=== PATIENT | female | born 2000 | race Caucasian/White ===

== ENCOUNTER 2020-01-05 05:52 | Emergency (ER) | payer BC, OTHER ==
[2020-01-05 06:00] VITALS: RESP 18
[2020-01-05] MEDS ORDERED: LIDOCAINE 1% INJ 10MG/ML (20 ML MDV) SQ STA (06:19)
[2020-01-05] MEDS ORDERED: DIPH,PERTUS(ACELL)TETVAC-LF 0.5 ML VIAL IM ONE (06:19)
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
[2020-01-05] MEDS ORDERED: ceFAZolin 1,000 MG VIAL (IM USE) IM STA (06:51)
[2020-01-05] MEDS ORDERED: WATER FOR IRRIG, STERILE 1,000 ML BTL IRRIGATION ONE (06:52)
--- NOTE | 2020-01-05 06:57 | XR ---
EXAMINATION TYPE: XR tibia fibula LT DATE OF EXAM: 01/05/2020 COMPARISON: NONE HISTORY: Laceration TECHNIQUE: 3 views FINDINGS: The tibia and fibula appear intact. I see no fracture nor dislocation. Knee joint and ankle joint appear intact. There is no sign of radiopaque foreign body. IMPRESSION: Negative exam. No fracture. Minimal laceration deformity noted over the anterior mid tibi a on the lateral view.
[2020-01-05 07:48] VITALS: BP 118/73; PULSE 96; TEMP 97.9
== END 2020-01-05 07:53 | disposition home or self-care (01) ==
LOC: EC 05:52
DX: S81.812A Laceration without foreign body, left lower leg, initial encounter (principal); Z23 Encounter for immunization; V43.53XA Car driver injured in collision with pick-up truck in traffic accident, initial encounter; Y92.410 Unspecified street and highway as the place of occurrence of the external cause
CPT/HCPCS: 73590; 90715; 99284; 96372; 90471; 12002; J0690; J2001

== ENCOUNTER 2020-09-13 02:11 | Emergency (ER) | payer BC ==
[2020-09-13 02:19] VITALS: RESP 18
--- NOTE | 2020-09-13 03:08 | XR ---
EXAM: XR Chest, 2 Views CLINICAL HISTORY: Chest pain TECHNIQUE: Frontal and lateral views of the chest. COMPARISON: None available FINDINGS: Lungs: Unremarkable. No consolidation. Pleural space: Unremarkable. No pneumothorax. Heart: Unremarkable. No cardiomegaly. Mediastinum: Unremarkable. Bones/joints: Unremarkable. IMPRESSION: No acute pulmonary process.
[2020-09-13] MEDS ORDERED: KETOROLAC 15 MG/ML 1 ML VIAL IM STA (03:10)
--- NOTE | 2020-09-13 03:10 | ED ---
Chest Pain HPI - General Chief Complaint: Chest Pain Stated Complaint: Chest pain, SOB Time Seen by Provider: 09/13/20 02:22 Source: patient Mode of arrival: ambulatory Limitations: no limitations - History of Present Illness Initial Comments: Carissa is a previously healthy 20-year-old female who presents the ER today for evaluation of 1 day of chest pain. Patient states that yesterday throughout the day she had a sharp stabbing discomfort in her chest which she describes as feeling like she's being poked. Patient reports the discomfort is worse with deep inspiration. Is not exertional. This not relieved with rest. She is hydrated take any medications for this. She has no cardiac history. No history of DVT or PE. She is not on any estrogen supplements, she is a nonsmoker. No Family history of clotting disorder. 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 She states she was having a stabbing discomfort again which prompted her to come to the ER for evaluation. Pain was not associated with any palpitations, shortness breath lightheadedness or diaphoresis. - Related Data Previous Rx's Medication Instructions Recorded Cephalexin [Keflex] 500 mg PO Q6HR 7 Days #28 cap 01/05/20 Allergies Allergy/AdvReac Type Severity Reaction Status Date / Time No Known Allergies Allergy Verified 09/13/20 02:19 Review of Systems ROS Statement: Those systems with pertinent positive or pertinent negative responses have been documented in the HPI. ROS Other: All systems not noted in ROS Statement are negative. EKG Findings - EKG Comments: EKG Findings:: EKG was obtained and complaint of chest pain, EKG was obtained at 20 5 AM, rate is 67, rhythm is narrow complex regular rhythm the P-wave before each QRS this is a sinus rhythm. There is a normal axis, normal intervals, OH 154, QRS 84, QTC 443. There is no acute ST elevations or depressions no evidence of acute ischemia or infarction or arrhythmia. Past Medical History Past Medical History: No Reported History History of Any Multi-Drug Resistant Organisms: None Reported Past Surgical History: No Surgical Hx Reported Past Psychological History: Anxiety, Depression Smoking Status: Never smoker Past Alcohol Use History: Occasional Past Drug Use History: None Reported General Exam - General Exam Comments Initial Comments: Physical Exam GENERAL: Patient is well-developed and well-nourished. Patient is nontoxic and well- hydrated and is in no distress. HENT: Normocephalic, Atraumatic. EYES: PERRL, EOMI PULMONARY: Unlabored respirations. No audible rales rhonchi or wheezing was noted. CARDIOVASCULAR: There is a regular rate and rhythm without any murmurs gallops or rubs. ABDOMEN: Soft and nontender with normal bowel sounds. SKIN: Skin is clear with no lesions or rashes and otherwise unremarkable. : Deferred NEUROLOGIC: Patient is alert and oriented x3. Moving all extremities spontaneously MUSCULOSKELETAL: Normal extremities with adequate strength and full range of motion. No lower extremity swelling or edema. No calf tenderness. PSYCHIATRIC: Normal psychiatric evaluation. Limitations: no limitations Course Vital Signs 09/13/20 09/13/20 02:15 03:20 Temperature 97.9 F 98.6 F Pulse Rate 79 82 Respiratory 18 18 Rate Blood Pressure 117/76 122/85 O2 Sat by Pulse 98 98 Oximetry Chest Pain [facility] The patient was seen and evaluated history is obtained from the patient Patient with atypical chest pain for over 24 hours, no cardiac risk factors no risk factors for DVT or PE Patient has no tachycardia or hypoxia EKG is nonischemic mix and chest x-ray is unremarkable Patient will be treated with Toradol Discussion of atypical chest pain was had with the patient. Patient agreeable to plan for discharge home at this time with close follow-up with her primary care provider. Close return parameters were discussed. All questions pertaining care were answered the best of my ability the patient was discharged home in stable condition. - Wells Criteria Clinical Symptoms of DVT: (0) No No Alternative Diagnosis: (0) No Immobilization of Surgery in Previous 4 Weeks: (0) No Previous DVT/PE: (0) No Hemoptysis: (0) No Malignancy: (0) No - PERC Rule No Prior History pf DVT/PE: (0) No No Recent Trauma or Surgery: (0) No Hemoptysis: (0) No No Exogenous Estrogen: (0) No No Clinical Signs Suggesting DVT: (0) No - JOESPH Score Age > 65: (0) No 3 or more CAD Risk Factors: (0) No Known CAD with more than 50% Stenosis: (0) No Aspirin use within the Past 7 Days: (0) No Elevated Cardiac Markers: (0) No ST Deviation Greater than 0.5mm: (0) No Disposition Clinical Impression: Atypical chest pain Disposition: HOME SELF-CARE Condition: Stable Instructions (If sedation given, give patient instructions): Chest Pain (ED) Is patient prescribed a controlled substance at d/c from ED?: No Referrals: Severiano Mancilla MD [Primary Care Provider] - 1-2 days
[2020-09-13 03:24] VITALS: BP 122/85; PULSE 82; TEMP 98.6
== END 2020-09-13 03:20 | disposition home or self-care (01) ==
LOC: EC 02:11
DX: R07.89 Other chest pain (principal); R06.02 Shortness of breath
CPT/HCPCS: 93005; 71046; 99285; 96372; J1885

== ENCOUNTER 2020-12-05 06:25 | Day surgery (SDC) | payer BC, OTHER ==
[2020-11-30 10:39] VITALS: BMI 36.9
[~2020-12-05 06:25] MED LIST: ACETAMINOPHEN TAB 500 MG TAB PO PRN; DEXAMETHASONE SOD PHOSPHATE 4 MG/ML 1 ML VIAL IV ONE; HEPARIN SODIUM,PORCINE 5,000 UNIT/ML 1 ML VIAL SQ PRN; LACTATED RINGERS 1,000 ML IV SCH; LIDOCAINE 1% (10MG/ML) FOR IV START INTRADERMA PRN; SCOPOLAMINE 1.5MG/72HR PATCH TRANSDERM ONE; metroNIDAZOLE-NS PMX 500 MG in SALINE 1 100ML.BAG IVPB PRN
[2020-12-05] MEDS ORDERED: HYDROmorphone 0.5 MG/0.5 ML SYRINGE IVP PRN (07:00)
[2020-12-05] MEDS: ONDANSETRON 4 MG/2 ML VIAL IVP ONE ×2 (07:27→09:16)
[2020-12-05] MEDS ORDERED: MIDAZOLAM 2 MG/2 ML VIAL ONE (07:54)
[2020-12-05] MEDS ORDERED: PROPOFOL 10 MG/ML 20 ML VIAL IV ONE (07:54)
[2020-12-05] MEDS ORDERED: LIDOCAINE 1% INJ 10MG/ML (20 ML MDV) ONE (07:54)
[2020-12-05] MEDS ORDERED: fentaNYL (PF) 50 MCG/ML 2 ML AMP ONE (07:54)
[2020-12-05] MEDS ORDERED: SUCCINYLCHOLINE CHLORIDE VIAL 200 MG/10 ML VIAL IV ONE (07:54)
--- NOTE | 2020-12-05 07:54 | P.GSHP ---
History of Present Illness H&P Date: 12/05/20 Chief Complaint: Pilonidal cyst 20-year-old female here today for excision pilonidal cyst. Patient has symptoms intermittently for the last 3 years. Last seen in September. He has frequent drainage that is bloody purulent in appearance. Symptoms slightly to the left of midline. Past Medical History Past Medical History: No Reported History Additional Past Medical History / Comment(s): pilonidal cyst History of Any Multi-Drug Resistant Organisms: None Reported Past Surgical History: No Surgical Hx Reported Past Anesthesia/Blood Transfusion Reactions: No Reported Reaction Smoking Status: Never smoker - Past Family History Mother Family Medical History: No Reported History Medications and Allergies Home Medications Medication Instructions Recorded Confirmed Type Sertraline [Zoloft] 100 mg PO DAILY 11/30/20 12/05/20 History Allergies Allergy/AdvReac Type Severity Reaction Status Date / Time No Known Allergies Allergy Verified 12/05/20 07:02 Surgical - Exam Vital Signs Temp Pulse BP Pulse Ox 98 F 89 117/71 98 12/05/20 07:03 12/05/20 07:03 12/05/20 07:03 12/05/20 07:03 Physical exam: General: Well-developed, well-nourished HEENT: Normocephalic, sclerae nonicteric Abdomen: Nontender, nondistended Extremities: No edema, area of induration and tenderness just to left of midline, 3 sinus openings along the gluteal crease Neuro: Alert and oriented Assessment and Plan (1) Pilonidal cyst Narrative/Plan: 20-year-old female with symptomatic pilonidal cyst. We'll proceed with surgical excision. Plan off midline closure. Risks of bleeding, infection, wound formation, recurrence, pain, scarring reviewed. She understands and wishes to proceed. Current Visit: Yes Status: Acute Code(s): L05.91 - PILONIDAL CYST WITHOUT ABSCESS SNOMED Code(s): 12093659
[2020-12-05] MEDS ORDERED: LIDOCAINE 1%-EPI 1:100,000 20 ML VIAL SQ ONE (08:22)
[2020-12-05] MEDS ORDERED: BUPIVACAINE (PF) 0.25% 30 ML VIAL SQ ONE ×2 (08:31)
[2020-12-05 09:09] VITALS: TEMP 97.1
[2020-12-05] MEDS ORDERED: HYDROcodone/APAP 5-325MG 1 EACH TAB PO PRN (09:11)
[2020-12-05] MEDS ORDERED: NALOXONE 0.4 MG/ML 1 ML VIAL IV PRN (09:11)
[2020-12-05] MEDS ORDERED: KETOROLAC 15 MG/ML 1 ML VIAL IVP ONE (09:16)
--- NOTE | 2020-12-05 09:17 | P.OP ---
Date of Procedure: 12/05/20 Procedure(s) Performed: PREOPERATIVE DIAGNOSIS: Pilonidal cyst POSTOPERATIVE DIAGNOSIS: Same PROCEDURE: Pilonidal cystectomy SURGEON: Fredy EBL: Minimal ANESTHESIA: General COMPLICATIONS: None OPERATIVE PROCEDURE: Patient was placed prone on the operating table after general anesthesia was achieved. The gluteal crease was prepped and draped in usual sterile fashion after the patient was placed in the prone jackknife position. The patient had 3 separate skin openings in the upper gluteal crease. She had a scar with induration and questionable fluctuation superior to the skin openings into the left of midline. The skin openings were too small to allow methylene blue instillation. Skin markings were used to delineate the anticipated excision site. Cat cleft lift technique was utilized. An elliptical incision was made to the left side of the buttock encompassing the medial aspect of the left buttock skin coming around just on the right side of the skin openings. Dissection through the subcutaneous tissues took place using electrocautery. The least amount of dissection took place that was required. No tunneling was seen in the periphery. Skin flap was raised to the right approximately 3-4 cm. The wound was then irrigated fully with saline. No bleeding was seen. The subcutaneous tissues were reapproximated using interrupted 2-0 Vicryl sutures. A 10 round drain was placed above the deeper closure layer. This exited from the left side and sutured to the skin using a 3-0 silk stitch. The dermal layer was then reapproximated using interrupted 3-0 Vicryl sutures. The skin was then closed using a running 3-0 Monocryl suture. The incision was off the midline to the left by a distance of approximately 1cm. Marcaine solution plain was utilized as local anesthesia. Skin glue was used along the length of the skin closure. A sterile dressing was applied at that time. DISPOSITION: Stable to recovery room
[2020-12-05 10:52] VITALS: BP 128/81; PULSE 77; RESP 16
== END 2020-12-05 10:45 | disposition home or self-care (01) ==
LOC: OR 06:25
PROVIDERS: ATTEND Surgery
DX: L05.01 Pilonidal cyst with abscess (principal); F32.9 Major depressive disorder, single episode, unspecified; E66.9 Obesity, unspecified; Z79.899 Other long term (current) drug therapy; F41.9 Anxiety disorder, unspecified; Z82.49 Family history of ischemic heart disease and other diseases of the circulatory system; Z83.3 Family history of diabetes mellitus; Z80.9 Family history of malignant neoplasm, unspecified; Z68.39 Body mass index [BMI] 39.0-39.9, adult
CPT/HCPCS: 11771; 81025; 88304; J2250; J0330; J1100; J0690; J2405; J2001; J3010; J1885; J2704; J1170

== ENCOUNTER → 2022-08-28 | Outpatient (CLI) | payer BC ==
--- NOTE | 2022-08-28 18:57 | CT ---
EXAMINATION TYPE: CT abdomen pelvis w con DATE OF EXAM: 08/28/2022 COMPARISON: NONE HISTORY: 22-year-old female R10.823, RLQ PAIN TECHNIQUE: Contiguous axial scanning of the abdomen and pelvis following administration of 100 ml Iso suni 300 IV contrast. Delayed images through the kidneys and coronal/sagittal reconstructions perform ed. CT DLP: 2751.40 mGycm Automated exposure control for dose reduction was used. FINDINGS: LUNG BASES: No significant abnormality is appreciated. LIVER/GB: No significant abnormality is appreciated. PANCREAS: No significant abnormality is seen. SPLEEN: No significant abnormality is seen. ADRENALS: No significant abnormality is seen. KIDNEYS: No significant abnormality is seen. BOWEL: There is a small hiatal hernia noted. No dilated small bowel, free fluid, or free air. Some pr ominent fluid filled small bowel loops are present in the mid to lower abdomen and may be transient. The appendix is borderline thickened at 8 mm. There is also a 9 mm appendicolith near the tip of the appendix. No felix fluid distention is seen. Some early inflammation is difficult to exclude. Refer t o coronal image 49. Mild stool burden. No pericolonic inflammatory change otherwise seen. LYMPH NODES: No mesenteric or retroperitoneal lymphadenopathy. No pelvic lymphadenopathy. PELVIS: Uterus is anteverted. Mild cul-de-sac free fluid likely physiologic. There is a 2.0 cm cyst o f the left ovary, probably a functional cyst. BONES: No significant abnormality is seen. IMPRESSION: 1. A 9 MM APPENDICOLITH NEAR THE TIP OF THE APPENDIX. THE APPENDIX IS ALSO BORDERLINE TO MILDLY THICK ENED AT 8 MM (NORMAL IS GENERALLY 6 MM OR LESS). HOWEVER, THERE IS NO FELIX FLUID DISTENTION SEEN AT THIS TIME. UNABLE TO EXCLUDE SOME EARLY INFLAMMATION. THE PATIENT SHOULD BE FOLLOWED CLINICALLY TO EX CLUDE AN EARLY ACUTE APPENDICITIS. 2. SOME PROMINENT FLUID-FILLED SMALL BOWEL LOOPS IN THE MID TO LOWER ABDOMEN COULD BE TRANSIENT OR CO ULD REFLECT A REGIONAL ENTERITIS OR MILD ILEUS. 3. MILD CUL-DE-SAC FREE FLUID LIKELY PHYSIOLOGIC. 4. SMALL HIATAL HERNIA.
== END | disposition home or self-care (01) ==
LOC: RADCTMAIN 12:45
PROVIDERS: ATTEND Family Medicine
DX: R10.823 Right lower quadrant rebound abdominal tenderness (principal)
CPT/HCPCS: 74177; Q9967

== ENCOUNTER 2022-08-29 14:26 | Observation (INO) | payer BC ==
[2022-08-29 16:15] LABS: Appearance,Urine Clear (Clear); Bacteria,Urine Rare /hpf; Bilirubin,Urine Negative (Negative); Blood,Urine Negative (Negative); Color,Urine Yellow; Glucose,Urine (UA) Negative (Negative); Ketones,Urine Negative (Negative); Leukocyte Esterase,Urine Moderate (Negative); Mucus,Urine Few /hpf; Nitrite,Urine Negative (Negative); PH, Urine 5.5 (5.0-8.0); Protein,Urine Trace (Negative); RBC,Urine 2 /hpf (0-5); Specific Gravity,Urine 1.028 (1.001-1.035); Squamous Epithelial Cell,Urine 3 /hpf (0-4); WBC,Urine 5 /hpf (0-5)
[2022-08-29 16:22] LABS: Basophils % (A) 0 %; Eosinophils # (A) 0.2 k/uL (0-0.7); Eosinophils % (A) 3 %; HCT 39.7 % (34.0-46.0); HGB 13.3 gm/dL (11.4-16.0); Lymphocytes # (A) 2.1 k/uL (1.0-4.8); Lymphocytes % (A) 27 %; MCH 27.4 pg (25.0-35.0); MCHC 33.6 g/dL (31.0-37.0); MCV 81.7 fL (80.0-100.0); Mean Platelet Volume 8.3; Monocytes # (A) 0.3 k/uL (0-1.0); Monocytes % (A) 3 %; Neutrophils # (A) 5.2 k/uL (1.3-7.7); Neutrophils % (A) 66 %; Platelet Count 240 k/uL (150-450); RBC 4.86 m/uL (3.80-5.40)
[2022-08-29 16:31] LABS: ALT 21 U/L (4-34); AST 19 U/L (14-36); African American GFR (CKD) >90 (>60 ml/min/1.73 sqM); Albumin 4.3 g/dL (3.5-5.0); Alkaline Phosphatase 70 U/L (38-126); Anion Gap 13 mmol/L; Blood Urea Nitrogen 13 mg/dL (7-17); Calcium 9.3 mg/dL (8.4-10.2); Carbon Dioxide 22 mmol/L (22-30); Chloride 102 mmol/L (98-107); Glucose 86 mg/dL (74-99); Non-African American GFR(CKD) >90 (>60 ml/min/1.73 sqM); Potassium 4.1 mmol/L (3.5-5.1); Sodium 137 mmol/L (137-145); Total Bilirubin 0.3 mg/dL (0.2-1.3); Total Protein 7.2 g/dL (6.3-8.2)
--- NOTE | 2022-08-29 19:02 | ED ---
General Adult HPI - General Chief complaint: Abdominal Pain Stated complaint: appendix Time Seen by Provider: 08/29/22 14:35 Source: patient, RN notes reviewed, old records reviewed Mode of arrival: ambulatory Limitations: no limitations - History of Present Illness Initial comments: 42-year-old female presents for abnormal outpatient CT and abdominal pain. Patient is otherwise healthy. She developed right lower quadrant pain 3 days prior and had outpatient computed tomography scan performed yesterday which was concerning for appendicitis. She has not had fever but his had chills. No vomiting. No urinary symptoms. She has been moving her bowels without any issue. Denies current . She states that her pain is actually improving over the past 24 hours. - Related Data Home Medications Medication Instructions Recorded Confirmed Sertraline [Zoloft] 100 mg PO DAILY 11/30/20 12/05/20 Previous Rx's Medication Instructions Recorded oxyCODONE HCL [OxyIR] 5 mg PO Q6H PRN 3 Days #6 tab 12/05/20 Allergies Allergy/AdvReac Type Severity Reaction Status Date / Time No Known Allergies Allergy Verified 12/05/20 07:02 Review of Systems ROS Statement: Those systems with pertinent positive or pertinent negative responses have been documented in the HPI. ROS Other: All systems not noted in ROS Statement are negative. Past Medical History Past Medical History: No Reported History Additional Past Medical History / Comment(s): pilonidal cyst History of Any Multi-Drug Resistant Organisms: None Reported Past Surgical History: No Surgical Hx Reported Past Anesthesia/Blood Transfusion Reactions: No Reported Reaction Past Psychological History: Anxiety, Depression Smoking Status: Never smoker - Past Family History Mother Family Medical History: No Reported History General Exam Limitations: no limitations General appearance: alert, in no apparent distress Head exam: Present: atraumatic, normocephalic Eye exam: Present: normal appearance, PERRL ENT exam: Present: normal exam Neck exam: Present: normal inspection. Absent: tenderness, meningismus Respiratory exam: Present: normal lung sounds bilaterally. Absent: respiratory distress, wheezes Cardiovascular Exam: Present: regular rate, normal rhythm GI/Abdominal exam: Present: soft, tenderness (Mild right lower quadrant tenderness). Absent: distended Extremities exam: Present: normal inspection, normal capillary refill. Absent: pedal edema Neurological exam: Present: alert, oriented X3, CN II-XII intact Psychiatric exam: Present: normal affect, normal mood Skin exam: Present: warm, dry, intact. Absent: cyanosis, diaphoretic Course Vital Signs 08/29/22 14:27 Temperature 98 F Pulse Rate 85 Respiratory 16 Rate Blood Pressure 147/84 O2 Sat by Pulse 98 Oximetry Medical Decision Making - Medical Decision Making 22-year-old female with outpatient CT evidence of acute appendicitis. Patient well-appearing with stable vitals. She does have right lower quadrant tenderness on exam. She has a normal CBC, normal CMP. She started on IV fluids and IV antibiotics in the emergency department. Case discussed with Dr. Dupree who will admit. - Lab Data Result diagrams: 08/29/22 15:58 08/29/22 15:58 Lab Results 08/29/22 08/29/22 08/29/22 Range/Units 15:58 15:58 15:58 WBC 8.0 (3.8-10.6) k/uL RBC 4.86 (3.80-5.40) m/uL Hgb 13.3 (11.4-16.0) gm/dL Hct 39.7 (34.0-46.0) % MCV 81.7 (80.0-100.0) fL MCH 27.4 (25.0-35.0) pg MCHC 33.6 (31.0-37.0) g/dL RDW 13.0 (11.5-15.5) % Plt Count 240 (150-450) k/uL MPV 8.3 Neutrophils % 66 % Lymphocytes % 27 % Monocytes % 3 % Eosinophils % 3 % Basophils % 0 % Neutrophils # 5.2 (1.3-7.7) k/uL Lymphocytes # 2.1 (1.0-4.8) k/uL Monocytes # 0.3 (0-1.0) k/uL Eosinophils # 0.2 (0-0.7) k/uL Basophils # 0.0 (0-0.2) k/uL Sodium (137-145) mmol/L Potassium (3.5-5.1) mmol/L Chloride (98-107) mmol/L Carbon Dioxide (22-30) mmol/L Anion Gap mmol/L BUN (7-17) mg/dL Creatinine (0.52-1.04) mg/dL Est GFR (CKD-EPI)AfAm (>60 ml/min/1.73 sqM) Est GFR (CKD-EPI)NonAf (>60 ml/min/1.73 sqM) Glucose (74-99) mg/dL Calcium (8.4-10.2) mg/dL Total Bilirubin (0.2-1.3) mg/dL AST (14-36) U/L ALT (4-34) U/L Alkaline Phosphatase (38-126) U/L Total Protein (6.3-8.2) g/dL Albumin (3.5-5.0) g/dL Urine Color Yellow Urine Appearance Clear (Clear) Urine pH 5.5 (5.0-8.0) Ur Specific [place] 1.028 (1.001-1.035) Urine Protein Trace H (Negative) Urine Glucose (UA) Negative (Negative) Urine Ketones Negative (Negative) Urine Blood Negative (Negative) Urine Nitrite Negative (Negative) Urine Bilirubin Negative (Negative) Urine Urobilinogen 2.0 (<2.0) mg/dL Ur Leukocyte Esterase Moderate H (Negative) Urine RBC 2 (0-5) /hpf Urine WBC 5 (0-5) /hpf Ur Squamous Epith Cells 3 (0-4) /hpf Urine Bacteria Rare H (None) /hpf Urine Mucus Few H (None) /hpf Urine HCG, Qual Not Detected (Not Detectd) 08/29/22 Range/Units 15:58 WBC (3.8-10.6) k/uL RBC (3.80-5.40) m/uL Hgb (11.4-16.0) gm/dL Hct (34.0-46.0) % MCV (80.0-100.0) fL MCH (25.0-35.0) pg MCHC (31.0-37.0) g/dL RDW (11.5-15.5) % Plt Count (150-450) k/uL MPV Neutrophils % % Lymphocytes % % Monocytes % % Eosinophils % % Basophils % % Neutrophils # (1.3-7.7) k/uL Lymphocytes # (1.0-4.8) k/uL Monocytes # (0-1.0) k/uL Eosinophils # (0-0.7) k/uL Basophils # (0-0.2) k/uL Sodium 137 (137-145) mmol/L Potassium 4.1 (3.5-5.1) mmol/L Chloride 102 (98-107) mmol/L Carbon Dioxide 22 (22-30) mmol/L Anion Gap 13 mmol/L BUN 13 (7-17) mg/dL Creatinine 0.69 (0.52-1.04) mg/dL Est GFR (CKD-EPI)AfAm >90 (>60 ml/min/1.73 sqM) Est GFR (CKD-EPI)NonAf >90 (>60 ml/min/1.73 sqM) Glucose 86 (74-99) mg/dL Calcium 9.3 (8.4-10.2) mg/dL Total Bilirubin 0.3 (0.2-1.3) mg/dL AST 19 (14-36) U/L ALT 21 (4-34) U/L Alkaline Phosphatase 70 (38-126) U/L Total Protein 7.2 (6.3-8.2) g/dL Albumin 4.3 (3.5-5.0) g/dL Urine Color Urine Appearance (Clear) Urine pH (5.0-8.0) Ur Specific [place] (1.001-1.035) Urine Protein (Negative) Urine Glucose (UA) (Negative) Urine Ketones (Negative) Urine Blood (Negative) Urine Nitrite (Negative) Urine Bilirubin (Negative) Urine Urobilinogen (<2.0) mg/dL Ur Leukocyte Esterase (Negative) Urine RBC (0-5) /hpf Urine WBC (0-5) /hpf Ur Squamous Epith Cells (0-4) /hpf Urine Bacteria (None) /hpf Urine Mucus (None) /hpf Urine HCG, Qual (Not Detectd) Disposition Clinical Impression: Acute appendicitis Disposition: ADMITTED IP TO THIS [facility] Condition: Stable Is patient prescribed a controlled substance at d/c from ED?: No Referrals: Severiano Mancilla MD [Primary Care Provider] - 1-2 days Time of Disposition: 19:09
[2022-08-29] MEDS ORDERED: NALOXONE 0.4 MG/ML 1 ML VIAL IV PRN (19:06)
[2022-08-29] MEDS ORDERED: ACETAMINOPHEN TAB 325 MG TAB PO PRN (19:06)
[2022-08-29] MEDS: PIPERACILLIN-TAZOBACTAM 3.375 GM in SODIUM CHLORIDE 0.9% 100 ML IVPB SCH (20:11)
[2022-08-29] MEDS: SODIUM CHLORIDE 0.9% 1,000 ML IV SCH (20:11)
[2022-08-30] MEDS: PIPERACILLIN-TAZOBACTAM 3.375 GM in SODIUM CHLORIDE 0.9% 100 ML IVPB SCH ×3 (04:22→20:59)
[2022-08-30] MEDS: SODIUM CHLORIDE 0.9% 1,000 ML IV SCH ×2 (04:22→19:43)
[2022-08-30] MEDS ORDERED: ceFAZolin 3 GM in SODIUM CHLORIDE 0.9% 100 ML IVPB PRN (05:00)
--- NOTE | 2022-08-30 08:08 | P.GSHP ---
History of Present Illness H&P Date: 08/30/22 Patient comes in with 2 day history of right lower quadrant abdominal pain. Computed tomography scan revealed consistent with appendicitis. Will proceed with robotic appendectomy. May have ice chips in the interim. Past Medical History Past Medical History: No Reported History Additional Past Medical History / Comment(s): pilonidal cyst History of Any Multi-Drug Resistant Organisms: None Reported Past Surgical History: No Surgical Hx Reported Past Anesthesia/Blood Transfusion Reactions: No Reported Reaction Past Psychological History: Anxiety, Depression Smoking Status: Never smoker Past Alcohol Use History: Occasional Past Drug Use History: None Reported - Past Family History Mother Family Medical History: No Reported History Medications and Allergies Home Medications Medication Instructions Recorded Confirmed Type Biotin 5 mg PO DAILY 08/29/22 08/29/22 History Cholecalciferol [Vitamin D3 (25 25 mcg PO DAILY 08/29/22 08/29/22 History Mcg = 1000 Iu)] PARoxetine [Paxil] 20 mg PO DAILY 08/29/22 08/29/22 History Potassium Gluconate [Potassium 99 mg PO DAILY 08/29/22 08/29/22 History Gluconate ER] Allergies Allergy/AdvReac Type Severity Reaction Status Date / Time No Known Allergies Allergy Verified 08/29/22 19:47 Surgical - Exam Vital Signs Temp Pulse Resp BP Pulse Ox 98 F 85 16 147/84 98 08/29/22 14:27 08/29/22 14:27 08/29/22 14:27 08/29/22 14:27 08/29/22 14:27 Results - Labs 08/29/22 15:58 08/29/22 15:58 Abnormal Lab Results - Last 24 Hours (Table) 08/29/22 Range/Units 15:58 Urine Protein Trace H (Negative) Ur Leukocyte Esterase Moderate H (Negative) Urine Bacteria Rare H (None) /hpf Urine Mucus Few H (None) /hpf Diabetes panel 08/29/22 Range/Units 15:58 Sodium 137 (137-145) mmol/L Potassium 4.1 (3.5-5.1) mmol/L Chloride 102 (98-107) mmol/L Carbon Dioxide 22 (22-30) mmol/L BUN 13 (7-17) mg/dL Creatinine 0.69 (0.52-1.04) mg/dL Glucose 86 (74-99) mg/dL Calcium 9.3 (8.4-10.2) mg/dL AST 19 (14-36) U/L ALT 21 (4-34) U/L Alkaline Phosphatase 70 (38-126) U/L Total Protein 7.2 (6.3-8.2) g/dL Albumin 4.3 (3.5-5.0) g/dL Calcium panel 08/29/22 Range/Units 15:58 Calcium 9.3 (8.4-10.2) mg/dL Albumin 4.3 (3.5-5.0) g/dL Pituitary panel 08/29/22 Range/Units 15:58 Sodium 137 (137-145) mmol/L Potassium 4.1 (3.5-5.1) mmol/L Chloride 102 (98-107) mmol/L Carbon Dioxide 22 (22-30) mmol/L BUN 13 (7-17) mg/dL Creatinine 0.69 (0.52-1.04) mg/dL Glucose 86 (74-99) mg/dL Calcium 9.3 (8.4-10.2) mg/dL Adrenal panel 08/29/22 Range/Units 15:58 Sodium 137 (137-145) mmol/L Potassium 4.1 (3.5-5.1) mmol/L Chloride 102 (98-107) mmol/L Carbon Dioxide 22 (22-30) mmol/L BUN 13 (7-17) mg/dL Creatinine 0.69 (0.52-1.04) mg/dL Glucose 86 (74-99) mg/dL Calcium 9.3 (8.4-10.2) mg/dL Total Bilirubin 0.3 (0.2-1.3) mg/dL AST 19 (14-36) U/L ALT 21 (4-34) U/L Alkaline Phosphatase 70 (38-126) U/L Total Protein 7.2 (6.3-8.2) g/dL Albumin 4.3 (3.5-5.0) g/dL
[2022-08-30] MEDS ORDERED: HEPARIN SODIUM,PORCINE/PF 5,000 UNIT/0.5 ML SYRINGE SQ PRN (08:20)
[2022-08-30] MEDS ORDERED: ONDANSETRON 4 MG/2 ML VIAL IVP PRN (08:20)
[2022-08-30] MEDS ORDERED: METOCLOPRAMIDE 5 MG/ML 2 ML VIAL IVP PRN (08:20)
[2022-08-30] MEDS ORDERED: FAMOTIDINE 20 MG TAB PO STA (08:21)
[2022-08-30] MEDS ORDERED: SCOPOLAMINE 1 MG/72 HR PATCH TRANSDERM STA (08:21)
[2022-08-30] MEDS ORDERED: ACETAMINOPHEN IV (For NPO) 1,000 MG in EMPTY BAG 1 BAG IVPB ONE (08:30)
[2022-08-30] MEDS ORDERED: SODIUM CHLORIDE 0.9% 1,000 ML IV ONE ×2 (14:30→20:25)
[2022-08-30] MEDS ORDERED: FLUID CONTINUATION IV ONE (14:30)
[2022-08-30] MEDS ORDERED: ONDANSETRON 4 MG/2 ML VIAL IVP ONE (14:33)
[2022-08-30] MEDS ORDERED: DEXAMETHASONE SOD PHOSPHATE 4 MG/ML 1 ML VIAL IVP ONE (14:34)
[2022-08-30] MEDS ORDERED: ACETAMINOPHEN IV (For NPO) 1,000 MG/100 ML VIAL IVPB ONE (14:37)
[2022-08-30] MEDS ORDERED: NEOSTIGMINE 1 MG/ML 10 ML VIAL ONE (15:53)
[2022-08-30] MEDS ORDERED: MIDAZOLAM 2 MG/2 ML VIAL ONE (15:53)
[2022-08-30] MEDS ORDERED: SUCCINYLCHOLINE CHLORIDE 200 MG/10 ML VIAL IV ONE (15:53)
[2022-08-30] MEDS ORDERED: ROCURONIUM 10 MG/ML (5 ML VIAL) IV ONE (15:53)
[2022-08-30] MEDS ORDERED: GLYCOPYRROLATE 0.2 MG/ML 2 ML VIAL ONE (15:53)
[2022-08-30] MEDS ORDERED: PROPOFOL 10 MG/ML 20 ML VIAL IV ONE (15:53)
[2022-08-30] MEDS ORDERED: fentaNYL (PF) 50 MCG/ML 2 ML AMP ONE (15:53)
[2022-08-30] MEDS ORDERED: SUGAMMADEX SODIUM 200 MG/2 ML SDV IV ONE (15:53)
[2022-08-30] MEDS ORDERED: LIDOCAINE 1%-EPI 1:100,000 20 ML VIAL SQ ONE (16:18)
--- NOTE | 2022-08-30 16:59 | P.OP ---
Date of Procedure: 08/30/22 Description of Procedure: SURGEON: VICKI FRIAS MD Preoperative Diagnosis: 1. Acute appendicitis 2. Depressive disorder 3. Generalized anxiety disorder 4. Morbid obesity due to excess calories, BMI 40.2 Postoperative Diagnosis: 1. Acute appendicitis 2. Depressive disorder 3. Generalized anxiety disorder 4. Morbid obesity due to excess calories, BMI 40.2 5. Left inguinal hernia Procedure(s) Performed: 1. Robotic-assisted daVinci Xi laparoscopic appendectomy Anesthesia: GETA, local Estimated Blood Loss (ml): 5 Pathology: other (appendix) Condition: stable Disposition: floor Operative Findings: 1. Acute appendicitis without rupture 2. Terminal ileum unremarkable 3. Cecum unremarkable 4. Left inguinal hernia INDICATIONS: The patient is a 22-year-old female who presents with acute appendicitis. Benefits and risks, including infection, open surgery, and bleeding for additional surgery was discussed at length. Informed consent was obtained. All questions of the patient and family were answered. DESCRIPTION: The patient was transferred to the operating room and placed in supine position. The patient had previously voided. The abdomen was then prepped and draped in standard sterile fashion as Ioban was placed along the abdomen to minimize any contamination of skin floor. After a timeout protocol was performed, attention was then brought to the left upper quadrant whereby a 0 degree 5 mm laparoscopic trocar entry was performed. The abdominal cavity was entered and insufflated to 12 mmHg pressure, which was tolerated well. Diagnostic laparoscopy demonstrated no injury to bowel, viscera or mesentery. Next a robotic 8-mm trocar was placed along the left lower quadrant, 10-cm lateral to the midline. A 12 mm port was placed along the left upper quadrant and another 8-mm port left lateral abdominal wall. Ports were placed 8 cm apart from each other including 15-20 cm away from the target anatomy of the right pelvis. The patient was then placed in Trendelenburg position, at least 7 down and right side up at least 7. The robotic da Yeimi XI system was primed and docked from the left side of the patient. Using atraumatic graspers and vessel sealer, the robotic system was docked and primed as described. Instruments were interchanged by the executive assistant to president including graspers, robotic stapler and vessel sealer. Next, attention was brought to identify the cecum. A systematic view within the abdominal cavity was started with the small bowel which was unremarkable. The base of the cecum was unremarkable. A small 1 cm indirect inguinal hernia was identified. The body of the appendix was dilated at the tip. No perforation was identified. The appendix was dissected free from its surrounding tissues. Blue 30 mm robotic staple load was fired along the base of the appendix. The staple line was hemostatic. Hemostasis was checked prior to undocking the robot. The robot was undocked. I re-scrubbed into the case. The specimen was removed from the abdominal cavity with an Endo Catch bag through the 12 mm trocar at the left upper quadrant. All instruments and pneumoperitoneum were evacuated from the abdominal cavity. Local anesthetic was infiltrated to all wounds for postop analgesia. All incisions were also cleansed with diluted hydrogen peroxide. The incisions were closed with 4-0 Monocryl. Exofin glue was applied to the rest of the skin incisions. The patient had tolerated the procedure well. The patient was extubated successfully. The patient was transferred to the postanesthesia care unit in stable condition. Plan - Discharge Summary Discharge Rx Participant: Yes New Discharge Prescriptions: No Action PARoxetine [Paxil] 20 mg PO DAILY Cholecalciferol [Vitamin D3 (25 Mcg = 1000 Iu)] 25 mcg PO DAILY Potassium Gluconate [Potassium Gluconate ER] 99 mg PO DAILY Biotin 5 mg PO DAILY Discharge Medication List Biotin 5 mg PO DAILY 08/29/22 [History] Cholecalciferol [Vitamin D3 (25 Mcg = 1000 Iu)] 25 mcg PO DAILY 08/29/22 [History] PARoxetine [Paxil] 20 mg PO DAILY 08/29/22 [History] Potassium Gluconate [Potassium Gluconate ER] 99 mg PO DAILY 08/29/22 [History] Follow up Appointment(s)/Referral(s): Severiano Mancilla MD [Primary Care Provider] - 1-2 days
[2022-08-30] MEDS: HYDROmorphone 0.5 MG/0.5 ML SYRINGE IVP PRN ×2 (17:07→17:12)
[2022-08-30] MEDS: KETOROLAC 15 MG/ML 1 ML VIAL IVP SCH ×3 (17:07→22:27)
[2022-08-30] MEDS ORDERED: MEPERIDINE 50 MG/ML SYRINGE IVP ONE (17:28)
--- NOTE | 2022-08-30 20:19 | P.PN ---
Progress Note - Text Progress Note Date: 08/30/22 Discussed with nurse regarding patient postoperative care over telephone. Per nursing, patient has elevated heart rate over 120. We'll monitor tonight. Anticipated discharge tomorrow.
[2022-08-31] MEDS: SODIUM CHLORIDE 0.9% 1,000 ML IV SCH ×2 (05:14→11:58)
[2022-08-31] MEDS: KETOROLAC 15 MG/ML 1 ML VIAL IVP SCH (05:28)
[2022-08-31] MEDS: PIPERACILLIN-TAZOBACTAM 3.375 GM in SODIUM CHLORIDE 0.9% 100 ML IVPB SCH (05:28)
[2022-08-31 07:57] VITALS: BP 99/59; PULSE 90; RESP 18; TEMP 98.4
[2022-08-31] MEDS ORDERED: ENOXAPARIN 30 MG/0.3 ML SYRINGE SQ SCH (09:00)
[2022-08-31 09:13] LABS: Basophils # (A) 0.01 X 10*3/uL (0.00-0.10); Basophils % (A) 0.1 %; Eosinophils # (A) 0 X 10*3/uL (0.04-0.35); Eosinophils % (A) 0 %; HCT 37.6 % (37.2-46.3); HGB 12.2 g/dL (12.0-15.0); Immature Grans, Automated 0.2 %; Lymphocytes # (A) 1.44 X 10*3/uL (0.90-5.00); MCH 26.8 pg (27.0-32.0); MCHC 32.4 g/dL (32.0-37.0); MCV 82.5 fL (80.0-97.0); Mean Platelet Volume 10.8 fL (9.5-12.2); Monocytes % (A) 2.9 %; NRBC Per 100 WBC 0 /100 WBCS (0.0-0.0); Neutrophils # (A) 8.48 X 10*3/uL (1.80-7.70); Neutrophils % (A) 82.8 %; Platelet Count 264 X 10*3/uL (140-440); RBC 4.56 X 10*6/uL (4.10-5.20); RDW 13.2 % (11.5-14.5); WBC 10.25 X 10*3/uL (4.50-10.00)
--- NOTE | 2022-08-31 12:07 | P.DS ---
Providers Date of admission: 08/29/22 19:06 Expected date of discharge: 08/31/22 Attending physician: Andie Dupree Consults: 08/30/22 08:20 Consult Physician Routine Consulting Provider: [facility] Consult Reason/Comments: [facility] Do you want consulting provider notified?: Yes Primary care physician: Severiano Mancilla Hospital Course: Discharge diagnosis 1. Acute appendicitis 2. Depressive disorder 3. Generalized anxiety disorder 4. Morbid obesity due to excess calories, BMI 40.2 5. Left inguinal hernia 6. Sinus tachycardia due to dehydration resolved with IV fluids Hospital course This is a 22-year-old female presented with right lower quadrant abdominal pain. Computed tomography scan was consistent with appendicitis. She is status post robotic-assisted laparoscopic appendectomy. Patient tolerated surgery well. Her pain is controlled. She has been up and ambulating. She's tolerating diet. She's having flatus. She is afebrile. Patient is stable for discharge. Physician Boring Machine Operator Production note has been reviewed by physician. Signing provider agrees with the documented findings, assessment, and plan of care. Patient Condition at Discharge: Stable Plan - Discharge Summary Discharge Rx Participant: Yes New Discharge Prescriptions: New Acetaminophen Tab [Tylenol] 1,000 mg PO Q6HR PRN #30 tablet PRN Reason: Pain Ibuprofen [Motrin] 600 mg PO Q8HR PRN #30 tab PRN Reason: Pain Continue PARoxetine [Paxil] 20 mg PO DAILY Cholecalciferol [Vitamin D3 (25 Mcg = 1000 Iu)] 25 mcg PO DAILY Potassium Gluconate [Potassium Gluconate ER] 99 mg PO DAILY Biotin 5 mg PO DAILY Discharge Medication List Biotin 5 mg PO DAILY 08/29/22 [History] Cholecalciferol [Vitamin D3 (25 Mcg = 1000 Iu)] 25 mcg PO DAILY 08/29/22 [History] PARoxetine [Paxil] 20 mg PO DAILY 08/29/22 [History] Potassium Gluconate [Potassium Gluconate ER] 99 mg PO DAILY 08/29/22 [History] Acetaminophen Tab [Tylenol] 1,000 mg PO Q6HR PRN #30 tablet 08/31/22 [Rx] Ibuprofen [Motrin] 600 mg PO Q8HR PRN #30 tab 08/31/22 [Rx] Follow up Appointment(s)/Referral(s): Andie Dupree MD [STAFF PHYSICIAN] - 09/04/22 4:15 pm Severiano Mancilla MD [Primary Care Provider] - 1-2 days (CALL FOR APPOINTMENT.) Patient Instructions/Handouts: Acetaminophen (By mouth), Ibuprofen (By mouth), Laparoscopic Appendectomy (DC) Activity/Diet/Wound Care/Special Instructions: No lifting over 4 pounds in 4 weeks You May shower. No bath tub soaks for two weeks Use Tylenol and ibuprofen scheduled for the next 24-48 hours for best pain relief. Use ice along incisions for the today to prevent swelling. Discharge Disposition: HOME SELF-CARE
== END 2022-08-31 12:31 | disposition home or self-care (01) ==
LOC: EC 14:26 → 6NMEDSUR 19:06
PROVIDERS: ADMIT Surgery Plastic and Reconstructive Surgery; ATTEND Surgery Plastic and Reconstructive Surgery
DX: K35.80 Unspecified acute appendicitis (principal); K40.90 Unilateral inguinal hernia, without obstruction or gangrene, not specified as recurrent; E86.0 Dehydration; R00.0 Tachycardia, unspecified; F32.A Depression, unspecified; F41.1 Generalized anxiety disorder; E66.01 Morbid (severe) obesity due to excess calories; Z68.41 Body mass index [BMI] 40.0-44.9, adult; Z79.899 Other long term (current) drug therapy
CPT/HCPCS: 96361 ×2; 96360; 99285; 36415; 93005; 80053; 85025 ×2; 81001; 81025; 87040; 44970; G0378 ×3; J2543 ×3; J2250; J0330; J1100; J2710; J2175; J0690; J2405; J3010; J1650; J0131; J1885 ×2; J2704; J1170; J1644; 88304

== ENCOUNTER → 2022-09-26 | Outpatient (CLI) | payer BC ==
--- NOTE | 2022-09-26 16:30 | P.SLEEP ---
History of Present Illness DATE: 09/26/2022 CONSULTATION/NEW PATIENT EVALUATION HISTORY OF PRESENT ILLNESS/SLEEP-WAKE EVALUATION: 22year old lady gentleman had been evaluated in the sleep center for possible obstructive sleep apnea hypopnea syndrome. SLEEP SCHEDULE: Usually sleep schedule on weekdays from 9 PM to 4:30 AM, during days off from 11 PM to 10 AM. FALLING ASLEEP: No problems with falling asleep, although patient has TV set and bedroom. DURING SLEEP: Patient snores and wakes up from sleep up to 6 times with one episode of nocturia. Positive history of restless leg symptoms, jerking movements, sweating. No history of hypnogogical hallucinations, sleep paralysis, or cataplexy. DURING THE DAY/WAKE STATE: In the morning patient wake up tired, falling asleep during the day, has problems mainly, concentration, irritability. [place] sleepiness scale is increased to 13. Patient take 1 nap around 11:30 AM. PAST MEDICAL HISTORY: Depression, anxiety, iron deficiency anemia. PAST SURGICAL HISTORY: Appendectomy, pilonidal cyst removed. MEDICATIONS: Paroxetine 20 mg once a day, ferrous sulfate 325 mg once a day. SOCIAL HISTORY: Negative for smoking, alcohol consumption occasional. FAMILY HISTORY: Hypertension, heart problems, cancer, diabetes, thyroid problems, snoring. REVIEW OF SYSTEMS: Snoring, multiple awakenings from sleep, sleepiness during the day, restless leg symptoms. No fevers. No double vision. No recent chest pain. No shortness of breath. No abdominal pain. No bleeding episodes. No blood in urine. No seizure episodes. PHYSICAL EXAMINATION: GENERAL: A pleasant patient without any distress. VITAL SIGNS: BP 114/65, HR 82, RR 16, weight 281 pounds, height 5 foot 9 inches, body mass index 41.4. HEENT: PERRLA, EOMI. Evaluation of oropharynx showed tongue protrudes midline, low position of soft palate Mallampati 3. NECK: Supple. No JVD. Thyroid is not palpable. 15-1/2 inches in circumference. LUNGS: Clear to percussion and to auscultation. Good air exchange. No wheezing or rhonchi. HEART: S1, S2 regular. No murmurs, gallops or rubs. ABDOMEN: Soft and nontender. Bowel sounds are present. No organomegaly appreciated. Obese EXTREMITIES: No clubbing or cyanosis. SUPERVISING ARCHITECT: Awake, alert, and oriented x3. Cranial nerves 2 to 7 intact. There is no fasciculation or atrophy noted. No focal deficits observed. ASSESSMENT: 1. Snoring, multiple awakenings from sleep up to 6 times, low position of soft palate Mallampati 3, excessive daytime sleepiness. Obstructive sleep apnea hypopnea syndrome. 2. Restless leg symptoms. 3 possibly periodic limb movements. 4. History of depression. 5 history of anxiety. 6. Excessive daytime sleepiness, [place] Sleepiness Scale increased to 13. Differential diagnosis would include hypersomnia. 7. Obesity body mass index 41.4. 8. History of iron deficiency anemia. Low level of iron may increase risk for restless legs and periodic limb movements. 9. Status post appendectomy. 10. Status post pilonidal cyst removed. PLAN: 1. Home sleep apnea test for evaluation of patient's breathing during sleep. 2. CPAP/BiPAP titration if sleep study confirms obstructive sleep apnea- hypopnea syndrome. 3. Polysomnogram with multiple sleep latency test if home sleep study will be negative for obstructive sleep apnea hypopnea syndrome for objective evaluation possible periodic limb movements and excessive daytime sleepiness. 4. No driving if patient feels any sleepiness. Patient is aware of civil and criminal liability for unsafe driving. 5. Sleep hygiene with regular sleep time for at least 7.5-8 hours. 6. Watching weight. 7. Preferable position during sleep on the side. Thank you very much for referring this patient for consultation. Sincerely, Bossman Burrell MD, PhD, FAASM. Diplomat of [place] [employer], Sleep Medicine Board by [place] [employer] [place] [employer] Outsole Handler of [facility] [place] Past Medical History Past Medical History: No Reported History Additional Past Medical History / Comment(s): pilonidal cyst History of Any Multi-Drug Resistant Organisms: None Reported Past Surgical History: No Surgical Hx Reported Past Anesthesia/Blood Transfusion Reactions: No Reported Reaction Past Psychological History: Anxiety, Depression Smoking Status: Never smoker Past Alcohol Use History: Occasional Past Drug Use History: None Reported - Past Family History Mother Family Medical History: No Reported History Medications and Allergies Home Medications Medication Instructions Recorded Confirmed Type Biotin 5 mg PO DAILY 08/29/22 08/29/22 History Cholecalciferol [Vitamin D3 (25 25 mcg PO DAILY 08/29/22 08/29/22 History Mcg = 1000 Iu)] PARoxetine [Paxil] 20 mg PO DAILY 08/29/22 08/29/22 History Potassium Gluconate [Potassium 99 mg PO DAILY 08/29/22 08/29/22 History Gluconate ER] Acetaminophen Tab [Tylenol] 1,000 mg PO Q6HR PRN #30 tablet 08/31/22 Rx Ibuprofen [Motrin] 600 mg PO Q8HR PRN #30 tab 08/31/22 Rx Allergies Allergy/AdvReac Type Severity Reaction Status Date / Time No Known Allergies Allergy Verified 08/29/22 19:47 Sleep Note - Sleep Note Sleep Note: Temperature: Pulse Rate: Respiratory Rate: Blood Pressure: SpO2: Height: Weight: BMI: Neck Circumference:
== END ==
LOC: SLEEP 15:41
PROVIDERS: ATTEND Internal Medicine
DX: G47.33 Obstructive sleep apnea (adult) (pediatric) (principal); G25.81 Restless legs syndrome; G47.61 Periodic limb movement disorder; F41.8 Other specified anxiety disorders; E66.9 Obesity, unspecified; Z68.41 Body mass index [BMI] 40.0-44.9, adult; Z48.815 Encounter for surgical aftercare following surgery on the digestive system; Z48.817 Encounter for surgical aftercare following surgery on the skin and subcutaneous tissue; Z86.2 Personal history of diseases of the blood and blood-forming organs and certain disorders involving the immune mechanism
CPT/HCPCS: 99211

== ENCOUNTER → 2023-02-13 | Outpatient (CLI) | payer BC ==
--- NOTE | 2023-02-13 14:01 | P.PN ---
Subjective DATE: 02/13/2023 FOLLOW UP VISIT. Patient returned to sleep center for follow-up visit to discuss results of recent CPAP titration test with falling multiple sleep latency test. I discuss results of sleep studies with patient in details. During the night on CPAP patient the slept quite well with normal respiration. Multiple sleep latency test on the following day showed short sleep latency counting 5 naps 6 minutes. No sleep onset REM periods have been documented. .[place] sleepiness scale is 8, but patient continued to feel sleepiness. Patient continued to use her CPAP equipment. I checked information from CPAP unit. Pressure is 5-16 cm of water, average 10.3 cm of water. Apnea-hypopnea index is 0.2 which is perfect MEDICATIONS:1. Paroxetine 2. Ferrous sulfate During physical exam: GENERAL: A pleasant patient without any distress. VITAL SIGNS: BP 108/75, HR 94, RR 16 , weight 294.4, temperature 98.1, oxygen saturation at room air 98 . HEENT: PERRLA, EOMI. NECK: Supple. No JVD. LUNGS: Clear to percussion and to auscultation. Good air exchange. No wheezing or rhonchi. HEART: S1, S2 regular. ABDOMEN: Soft and nontender. Slightly obese EXTREMITIES: No clubbing or cyanosis. PICKER MACHINE OPERATOR: Awake, alert, and oriented x3. No focal deficit. Impressions: 1. Obstructive sleep apnea hypopnea syndrome, normal respiration on CPAP. 2. Multiple sleep latency test confirmed sleepiness. Mean sleep latency 6 minutes. No sleep onset REM periods. Differential diagnosis include idiopathic hypersomnia and narcolepsy without cataplexy.. 3. Obesity. 4. History of depression. 5. History of anxiety. 6. History of iron deficiency anemia. 7. Status post bilateral needle cyst removed. 8. Status post appendectomy. Plan: 1. Patient will be started on treatment with Ritalin 5 mg at 8 AM and 5 mg at 1 PM. 2. Sleep hygiene with regular time in bed for at least 8 hours. 3. Daytime naps permitted 4. Precautions related to driving. No driving if feel any sleepiness. Patient is aware about civil and criminal liability for unsafe driving, promised to follow recommendations. 5. Continued to use CPAP equipment every night for the whole night. 6. Follow-up visit in 1-2 months. Thank you very much for allowing me to participate in the management of your patient. Bossman Burrell MD, PhD, FAASM. Diplomat of [place] [employer], Sleep Medicine Board by [employer] Medicine Senior Java Web Application Developer of [facility] [place]
== END ==
LOC: SLEEP 13:23
PROVIDERS: ATTEND Internal Medicine
DX: G47.33 Obstructive sleep apnea (adult) (pediatric) (principal); E66.9 Obesity, unspecified; D50.9 Iron deficiency anemia, unspecified; F32.A Depression, unspecified; F41.9 Anxiety disorder, unspecified; Z90.49 Acquired absence of other specified parts of digestive tract; Z99.89 Dependence on other enabling machines and devices; Z87.2 Personal history of diseases of the skin and subcutaneous tissue
CPT/HCPCS: 99212

== ENCOUNTER → 2023-04-17 | Outpatient (CLI) | payer BC ==
--- NOTE | 2023-04-17 16:29 | P.PN ---
Subjective DATE: 04/17/2023 FOLLOW UP VISIT. Patient returned to sleep center for follow-up visit related to treatment of significant excessive daytime sleepiness secondary to narcolepsy. Patient was started on treatment with Ritalin 5 mg twice a day. Patient feels significant improvements of her filling during the day sleepiness is significantly less. Patient continued to use her CPAP equipment but not every night. Range of the pressure 5-16 cm of water, average 11.2. Apnea-hypopnea index is only 0.3 which is perfect. . [place] sleepiness scale is 7 today, which is in normal range. MEDICATIONS:1. Ritalin 5 mg twice a day 2. Paroxetine 3. Iron supplement During physical exam: GENERAL: A pleasant patient without any distress. VITAL SIGNS: BP 125/79, HR 84, RR 16, weight 301.4, temperature 98.2, oxygen saturation at room air 98%. HEENT: PERRLA, EOMI. NECK: Supple. No JVD. LUNGS: Clear to percussion and to auscultation. Good air exchange. No wheezing or rhonchi. HEART: S1, S2 regular. ABDOMEN: Soft and nontender. Slightly obese EXTREMITIES: No clubbing or cyanosis. TARGET WORKER: Awake, alert, and oriented x3. No focal deficit. Impressions: 1. Hypersomnia, differential diagnosis include narcolepsy type II and idiopathic hypersomnia. M SLT 6 minutes. 2. Obstructive sleep apnea hypopnea syndrome, normal respiration on CPAP. 3. Obesity, BMI 45.1. 4. History of depression. 5. History of anxiety. 6. History of iron deficiency anemia. Plan: 1. Patient will continue treatment with Ritalin 5 mg at 8 AM and 5 mg at 1 PM 2. Sleep hygiene with regular time in bed for at least 8 hours. 3. Daytime naps permitted 4. Precautions related to driving. No driving if feel any sleepiness. Patient is aware about civil and criminal liability for unsafe driving, promised to follow recommendations. 5. Contingent to use CPAP equipment every night for the whole night. 6. Follow up visit in 4 months or earlier if patient has any problems. Thank you very much for allowing me to participate in the management of your patient. Bossman Burrell MD, PhD, FAASM. Diplomat of [place] [employer] Medicine, Sleep Medicine Board by [place] [employer] Jira Administrator of [facility] [place]
== END ==
LOC: 3 N SLEEP 15:58
PROVIDERS: ATTEND Internal Medicine
DX: G47.33 Obstructive sleep apnea (adult) (pediatric) (principal); E66.9 Obesity, unspecified; Z68.42 Body mass index [BMI] 45.0-49.9, adult; F32.A Depression, unspecified; F41.9 Anxiety disorder, unspecified; D50.9 Iron deficiency anemia, unspecified
CPT/HCPCS: 99212

== ENCOUNTER → 2023-08-28 | Outpatient (CLI) | payer BC ==
--- NOTE | 2023-08-28 11:41 | P.PN ---
Subjective DATE: 08/28/2023 FOLLOW UP VISIT. Patient returned to sleep center for follow-up visit related to treatment of significant excessive daytime sleepiness secondary to narcolepsy and mild obstructive sleep apnea hypopnea syndrome. Patient continued to use use CPAP equipment, but presently has some technical problems with CPAP unit and compla ining to showed today to [facility]. Patient did not bring CPAP unit with her today. The patient was on treatment with Ritalin 10 mg in the morning, but still feels sleepiness around noontime. Today by my recommendations patient tried 15 mg of Ritalin in the morning and she feels well and notes sleepy with this dose. No side effects. Patient prefers not to take any return in in the afternoon time, because that does not allow he to fall asleep in the evening. . [place] sleepiness scale is 9, which is borderline. MEDICATIONS:1 Paroxetine 30 mg once a day 2. Ritalin 15 mg in the morning During physical exam: GENERAL: A pleasant patient without any distress. VITAL SIGNS: BP 135 / 91, HR 100, RR 16 , weight 307.4, temperature ,98.1 oxygen saturation at room air 99%. HEENT: PERRLA, EOMI. NECK: Supple. No JVD. LUNGS: Clear to percussion and to auscultation. Good air exchange. No wheezing or rhonchi. HEART: S1, S2 regular. ABDOMEN: Soft and nontender. EXTREMITIES: No clubbing or cyanosis. WATER RESOURCES PROJECT MANAGER: Awake, alert, and oriented x3. No focal deficit. Impressions: 1. Hypersomnia, multiple sleep latency test 6 minutes. 2. Obstructive sleep apnea hypopnea syndrome in mild range, apnea-hypopnea index by results of home sleep apnea test 5.2]. 3. Obesity. 4. History of depression. 5. History of anxiety. 6. History of iron deficiency anemia. Plan: 1. Patient will continue treatment with Ritalin 15 mg in the morning 2. Sleep hygiene with regular time in bed for at least 8 hours. 3. Daytime naps permitted 4. Precautions related to driving. No driving if feel any sleepiness. Patient is aware about civil and criminal liability for unsafe driving, promised to follow recommendations. 5. Patient will continue to use CPAP equipment every night for the whole night. 6. 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 7 Follow up visit in 2 months. Thank you very much for allowing me to participate in the management of your patient. Bossman Burrell MD, PhD, FAASM. Diplomat of [place] [employer] Medicine, Sleep Medicine Board by [place] [employer] Park Ranger of [facility] [place]
== END ==
LOC: 3 N SLEEP 10:26
PROVIDERS: ATTEND Internal Medicine
DX: G47.10 Hypersomnia, unspecified (principal); E66.9 Obesity, unspecified; F32.A Depression, unspecified; F41.9 Anxiety disorder, unspecified; G47.33 Obstructive sleep apnea (adult) (pediatric); Z99.89 Dependence on other enabling machines and devices
CPT/HCPCS: 99212

== ENCOUNTER → 2024-10-08 | Outpatient (CLI) | payer OTHER ==
[2024-10-08 16:59] VITALS: BP 129/80; PULSE 90; RESP 16; TEMP 98.4
--- NOTE | 2024-10-08 17:57 | P.PROGSL ---
Subjective DATE: 10/08/2024 FOLLOW UP VISIT. Patient with hypersomnia and obstructive sleep apnea hypopnea syndrome return to sleep center for follow-up visit. Information from previous visit have been reviewed. Patient is on treatment with Ritalin 15 mg in the morning once a day. Patient is using PAP equipment every night for the whole night, getting PAP supplies in time. The patient does not have significant problems with the mask, PAP unit and humidification. Hilliards sleepiness scale is 10, which is borderline. I checked information from PAP unit. PAP unit pressure 5-16, average 10.8 cm H2O. Usage is 77% for more then 4 hours, average 7.5 hours per night. Leak is 9.4 l/m, which is in acceptable range. Apnea Hypopnea Index is 0.3, which is normal. MEDICATIONS have been reviewed, please see below. During physical exam: GENERAL: A pleasant patient without any distress. VITAL SIGNS: Please see below, weight is 313 lbs. HEENT: PERRLA, EOMI.low position of soft palate, Mallapati 3 . NECK: Supple. No JVD. LUNGS: Clear to percussion and to auscultation. Good air exchange. No wheezing or rhonchi. HEART: S1, S2 regular. ABDOMEN: Soft and nontender.[] EXTREMITIES: No clubbing or cyanosis. TOBACCO CLASSER: Awake, alert, and oriented x3. No focal deficit. Impressions: 1. Obstructive sleep apnea-hypopnea syndrome. Patient demonstrated good compliance with treatment, benefiting from treatment. 2. Obesity, BMI 46.8, patient increased weight on 6 pounds comparing with the previous visit. 3. Hypersomnia, mean sleep latency by MSLT 6 minutes. 4. History of depression. 5. History of anxiety. 6. History of iron deficiency anemia. Plan: 1. Continue using PAP equipment every night for the whole night. 2. Sleep hygiene with regular time in bed for at least 7.5-8 hours 3. PAP unit should stay lower then position of the head. 4. Patient will continue Ritalin 15 mg once a day in the morning. 5. Watching and losing weight. 6. Precautions related to driving. No driving if feel any sleepiness. 7. I will maintain prescription for PAP supplies including mask, tube, filters. 8. Follow up visit in 6 months or earlier if patient has any problems. Thank you very much for allowing me to participate in the management of your patient. Bossman Burrell MD, PhD, FAASM. Diplomat of [place] [employer], Sleep Medicine Board by [place] [employer] Sales Representative of [facility] [place] cc: Severiano Mancilla MD Objective - Vital Signs Vital Signs: Vital Signs Temp 98.4 F 10/08/24 16:58 Pulse 90 10/08/24 16:58 Resp 16 10/08/24 16:58 BP 129/80 10/08/24 16:58 Pulse Ox 98 10/08/24 16:58 FiO2 Intake & Output 10/07/24 10/08/24 10/08/24 18:59 06:59 18:59 Weight 141.974 kg Home Medications: Home Medications Medication Instructions Recorded Confirmed Type Biotin 5 mg PO DAILY 08/29/22 08/29/22 History Cholecalciferol [Vitamin D3 (25 25 mcg PO DAILY 08/29/22 08/29/22 History Mcg = 1000 Iu)] PARoxetine [Paxil] 20 mg PO DAILY 08/29/22 08/29/22 History Potassium Gluconate [Potassium 99 mg PO DAILY 08/29/22 08/29/22 History Gluconate ER] Acetaminophen Tab [Tylenol] 1,000 mg PO Q6HR PRN #30 tablet 08/31/22 Rx Ibuprofen [Motrin] 600 mg PO Q8HR PRN #30 tab 08/31/22 Rx
== END ==
LOC: 3 N SLEEP 16:05
PROVIDERS: ATTEND Internal Medicine
DX: G47.33 Obstructive sleep apnea (adult) (pediatric) (principal); E66.9 Obesity, unspecified; G47.10 Hypersomnia, unspecified; F32.A Depression, unspecified; F41.9 Anxiety disorder, unspecified; Z86.2 Personal history of diseases of the blood and blood-forming organs and certain disorders involving the immune mechanism; Z99.89 Dependence on other enabling machines and devices; Z68.42 Body mass index [BMI] 45.0-49.9, adult
CPT/HCPCS: 99212

== ENCOUNTER → 2024-11-25 | Outpatient (CLI) | payer OTHER | END | disposition home or self-care (01) | LOC: LABWHC1 11:48 | PROVIDERS: ATTEND Family Medicine | DX: R22.31 Localized swelling, mass and lump, right upper limb (principal) | CPT/HCPCS: 36415; 84550; 85652 ==

== ENCOUNTER → 2024-11-25 | Outpatient (CLI) | payer OTHER ==
--- NOTE | 2024-11-25 13:08 | XR ---
EXAMINATION TYPE: XR hand limited RT DATE OF EXAM: 11/25/2024 COMPARISON: NONE CLINICAL INDICATION: Female, 24 years old with history of R22.31 LOCALIZED SWELLING, MASS AND LUMP, R IGHT UP; right index finger pain TECHNIQUE: 2 views FINDINGS: No acute fracture, subluxation, dislocation. No retained radiopaque foreign body is seen. N o marginal erosions or soft tissue calcifications. IMPRESSION: No acute osseous abnormality seen. [facility], Workstation: [email or web address], 11/25/2024 1:05 PM
== END | disposition home or self-care (01) ==
LOC: RADXRMAIN 12:18
PROVIDERS: ATTEND Family Medicine
DX: R22.31 Localized swelling, mass and lump, right upper limb (principal); M79.644 Pain in right finger(s)